=== PATIENT | male | born 1955 | race Caucasian/White ===

== ENCOUNTER 2021-04-18 07:29 | Day surgery (SDC) | payer MEDICARE ==
[~2021-04-18] VITALS: Ht 193 cm; Wt 101.7 kg
[2021-04-18] MEDS ORDERED: LIPITOR20 MG PO (07:52)
[2021-04-18] MEDS ORDERED: GLUCOPHAGE XR500 M1 PO (07:52)
[2021-04-18] MEDS ORDERED: ZESTRIL2.5 MG PO (08:13)
[2021-04-18] MEDS ORDERED: ADVIL200 MG PO (08:22)
[2021-04-18 09:05] VITALS: BP 122/89; PULSE 80; TEMP 97.8
[2021-04-18 09:10] VITALS: BP 158/95; PULSE 43; TEMP 97.1
[2021-04-18 09:15] VITALS: BP 119/79; PULSE 43
[2021-04-18 09:30] VITALS: BP 125/75; PULSE 45
--- NOTE | 2021-04-18 09:55 | NUR ---
0905 Pt returns from endo procedure via cart and RN assist to [facility]. Pt ambulates from cart to recliner with RN assist. Monitors on and alarms set. Call light within reach. Report received from HILARIO Broderick. Pt alert and oriented. Pt requests coffee and muffin. Pt denies any pain or nausea. Pt's present in room. 0915 Pt taking food and drink well. No complications noted. 0945 Discharge instructions given to pt and . All questions answered to their satisfaction. Handed to pt are a thank you card and discharge information. 0955 Pt transferred out of the hospital via wheelchair and Charles assist, to private vehicle driven by pt's .
== END 2021-04-18 09:55 | disposition home or self-care (01) ==
LOC: SDCO 07:29
DX: D12.5 Benign neoplasm of sigmoid colon (principal); K57.31 Diverticulosis of large intestine without perforation or abscess with bleeding; R19.5 Other fecal abnormalities; K57.30 Diverticulosis of large intestine without perforation or abscess without bleeding; K64.8 Other hemorrhoids; E11.65 Type 2 diabetes mellitus with hyperglycemia; J30.89 Other allergic rhinitis; I10 Essential (primary) hypertension; M19.90 Unspecified osteoarthritis, unspecified site; K21.9 Gastro-esophageal reflux disease without esophagitis; G47.33 Obstructive sleep apnea (adult) (pediatric); E78.5 Hyperlipidemia, unspecified; Z98.52 Vasectomy status; Z87.891 Personal history of nicotine dependence; Z79.84 Long term (current) use of oral hypoglycemic drugs; Z79.899 Other long term (current) drug therapy
CPT/HCPCS: J2704; J7030